=== PATIENT | female | born 1965 | race Caucasian/White ===

== ENCOUNTER 2017-11-11 13:31 | Emergency (ER) | payer OTHER ==
[~2017-11-11 13:31] MED LIST: Iopamidol 370 76% 100 ML VIAL ONE
[2017-11-11 14:09] LABS: #Basophils 0.1 thou/uL (0.0-0.2); #Eosinphils 0.1 thou/uL (0.0-0.7); #Lymphocytes 1.5 thou/uL (1.20-3.40); #Monocytes 0.5 thou/uL (0.11-0.59); #Neutrophils 6.2 thou/uL (1.40-6.50); %Basophils 0.8 % (0.0-1.0); %Eosinophils 0.6 % (0.0-10.0); %Monocytes 5.5 % (0.0-10.0); Mean Corpuscular HGB CONC 33.7 g/dL (32.0-36.0); Mean Corpuscular Hemoglobin 28.2 pg (27.0-31.0); Mean Corpuscular Volume 83.5 fL (78.0-98.0); Mean Platelet Volume 7.8 fL (7.4-10.4); Platelet Count 304 thou/uL (130-400); RBC Distribution Width 11.7 % (11.5-14.5); Red Blood Cell (RBC) Count 4.27 mill/uL (4.20-5.40); White Blood Cell (WBC) Count 8.3 thou/uL (4.8-10.8)
[2017-11-11 14:28] LABS: ALT (SGPT) 18 U/L (8-55); AST (SGOT) 19 U/L (5-34); Albumin 4.2 g/dL (3.5-5.0); Alkaline Phosphatase 129 U/L (40-150); Anion Gap 12 mmol/L (10-20); BUN (Urea Nitrogen) 12 mg/dL (9.8-20.1); Bilirubin, Total 0.6 mg/dL (0.2-1.2); Calc. Creatinine Clearance 0 mL/min (70-130); Calcium 9.7 mg/dL (7.8-10.44); Carbon Dioxide 27 mmol/L (22-29); Chloride 102 mmol/L (98-107); Estimated GFR-MDRD 81; Globulin 3.1 g/dL (2.4-3.5); Glucose 106 mg/dL (70-105); Lipase 13 U/L (8-78); Potassium 3.9 mmol/L (3.5-5.1); Protein, Total 7.3 g/dL (6.0-8.3); Sodium 137 mmol/L (136-145)
[2017-11-11] MEDS ORDERED: Ondansetron HCl/PF 4 MG/2 ML Vial ONE (15:09)
[2017-11-11 15:17] LABS: Bilirubin Negative (Negative); Blood, Urine Trace (Negative); Clarity Clear (Clear); Glucose, Urine (Dipstick) Negative (Negative); Leukocyte Negative (Negative); Nitrite Negative (Negative); Protein, Urine (Dipstick) Negative (Neg-Trace); Specific Gravity, Urine 1.015 (1.005-1.030); Urobilinogen 0.2 mg/dL (0.2-1.0); pH, Urine 8.5 (5.0-9.0)
[2017-11-11] MEDS ORDERED: Ketorolac Tromethamine 30 MG/ML VIAL ONE (15:19)
[2017-11-11 15:34] LABS: Bacteria/HPF 1+ HPF (None Seen); Crystals/HPF 2+ AMORPH PHOS HPF (Negative); RBC/HPF 0-3 HPF (0-3); WBC/HPF None Seen HPF (0-3)
--- NOTE | 2017-11-11 15:58 | CT ---
CT ABDOMEN AND PELVIS WITH CONTRAST: INDICATIONS: Injury to right lower quadrant. A foreign object hit the patient in the right lower quadrant, accord ing to the history. TECHNIQUE: Multiple axial tomograms obtained through the abdomen and pelvis with IV enhancement. FINDINGS: The lung bases are clear. The liver, spleen, pancreas, and kidneys are unremarkable. There is a tin y cystic lesion in the right kidney. The bowel loops are unremarkable. No free blood or fluid in the abdomen or pelvis. The urinary blad narciso is unremarkable. Images through the pelvis show evidence of a hysterectomy. There is some haziness seen in the subcutaneous tissues of the right lower quadrant, just under the s kin, and there is mild skin thickening. This could represent the site of the injury, and this may re present a mild soft tissue contusion. IMPRESSION: No evidence of intraabdominal injury. POS: [facility]
== END 2017-11-11 15:40 | disposition home or self-care (01) ==
LOC: SCSER 13:31
DX: S30.1XXA Contusion of abdominal wall, initial encounter (principal); Z79.899 Other long term (current) drug therapy; W22.8XXA Striking against or struck by other objects, initial encounter
CPT/HCPCS: 74177; 80053; 81003; 81015; 83690; 85025; 96374; J1885; J2405

== ENCOUNTER 2018-06-03 13:23 | Outpatient (CLI) | payer OTHER ==
--- NOTE | 2018-06-03 16:28 | RAD ---
LUMBAR SPINE 2 VIEWS: HISTORY: Low back pain, inflammatory spondylopathies. FINDINGS/IMPRESSION: The vertebral bodies heights are maintained. No fracture, subluxation, or bony destruction is identi fied. Minimal degenerative changes are noted. POS: [facility]
== END 2018-06-03 13:24 | disposition home or self-care (01) ==
LOC: BICRAD 13:23
PROVIDERS: ATTEND Internal Medicine Rheumatology
DX: M46.87 Other specified inflammatory spondylopathies, lumbosacral region (principal); M47.816 Spondylosis without myelopathy or radiculopathy, lumbar region
CPT/HCPCS: 72100

== ENCOUNTER 2018-06-06 08:57 | Outpatient (CLI) | payer OTHER ==
--- NOTE | 2018-06-06 12:12 | MRI ---
MRI LUMBAR SPINE NONCONTRAST: HISTORY: Low back pain. Inflammatory spondylopathy. FINDINGS: Conus medullaris has a normal appearance. Vertebral body height and alignment are maintained. Bone marrow signal within normal limits. No inflammatory changes are apparent. T12-L1, L1-2, L2-3, L3-4: Central canal and neural foramen are patent. L4-5: Desiccation of the disk. Very mild posterior disk bulge. Thecal sac is patent. Mild osteoph ytosis of the facets. No focal nerve root compression. L5-S1: Small right posterolateral disk herniation with superior extension to the right anterior aspe ct of the central canal posterior to the L5 vertebral body. This results in some compression of the right S1 nerve root origin. Degenerative changes with mild stenosis of the left neural foramen. IMPRESSION: 1. Small disk herniation rightward at the lumbosacral junction, most greatly affecting the right S1 nerve root origin. Clinical correlation regarding the right S1 dermatome is required. 2. Mild disk bulge at the L4-5 level. POS: [facility]
== END 2018-06-06 08:58 | disposition home or self-care (01) ==
LOC: BICMRI 08:57
PROVIDERS: ATTEND Internal Medicine Rheumatology
DX: M46.87 Other specified inflammatory spondylopathies, lumbosacral region (principal); M51.27 Other intervertebral disc displacement, lumbosacral region
CPT/HCPCS: 72148

== ENCOUNTER 2018-09-12 14:36 | Outpatient (CLI) | payer OTHER ==
[2018-09-12 16:40] LABS: #Basophils 0.1 thou/uL (0.0-0.2); #Eosinphils 0.1 thou/uL (0.0-0.7); #Lymphocytes 1.6 thou/uL (1.20-3.40); #Monocytes 0.9 thou/uL (0.11-0.59); #Neutrophils 5.6 thou/uL (1.40-6.50); %Basophils 0.8 % (0.0-1.0); %Eosinophils 1.2 % (0.0-10.0); %Lymphocytes 19.6 % (21.0-51.0); %Monocytes 10.6 % (0.0-10.0); %Neutrophils 67.8 % (42.0-75.0); Hemoglobin 11.8 g/dL (12.0-16.0); Mean Corpuscular Hemoglobin 29.5 pg (27.0-31.0); Mean Corpuscular Volume 89.5 fL (78.0-98.0); Mean Platelet Volume 7.2 fL (7.4-10.4); Platelet Count 323 thou/uL (130-400); RBC Distribution Width 12.1 % (11.5-14.5); Red Blood Cell (RBC) Count 3.99 mill/uL (4.20-5.40); White Blood Cell (WBC) Count 8.3 thou/uL (4.8-10.8)
[2018-09-12 17:26] LABS: Anion Gap 13 mmol/L (10-20); BUN (Urea Nitrogen) 17 mg/dL (9.8-20.1); Calc. Creatinine Clearance 0 mL/min (70-130); Calcium 9.6 mg/dL (7.8-10.44); Carbon Dioxide 27 mmol/L (22-29); Chloride 105 mmol/L (98-107); Estimated GFR-MDRD 81; Glucose 105 mg/dL (70-105); Potassium 3.6 mmol/L (3.5-5.1); Sodium 141 mmol/L (136-145)
== END 2018-09-12 14:37 | disposition home or self-care (01) ==
LOC: LABBT 14:36
PROVIDERS: ATTEND Surgery
DX: Z01.812 Encounter for preprocedural laboratory examination (principal); K40.90 Unilateral inguinal hernia, without obstruction or gangrene, not specified as recurrent
CPT/HCPCS: 80048; 85025

== ENCOUNTER 2018-09-20 11:16 | Day surgery (SDC) | payer OTHER ==
[2018-09-12 15:17] VITALS: BMI 27.2
[2018-09-20] MEDS ORDERED: Promethazine HCl 25 MG/ML VIAL ONE ×2 (13:43→15:31)
[2018-09-20] MEDS ORDERED: Fentanyl 100 MCG/2 ML VIAL ONE ×2 (13:43→15:31)
[2018-09-20] MEDS ORDERED: Scopolamine 1.5 mg/72 hour Patch ONE (13:43)
[2018-09-20] MEDS ORDERED: Ketorolac Tromethamine 30 MG/ML VIAL ONE (16:53)
[2018-09-20] MEDS ORDERED: Glycopyrrolate 0.2 MG/ML 5 ML SYRINGE ONE (16:53)
[2018-09-20] MEDS ORDERED: Lidocaine 1% PF 5 ML VIAL ONE (16:53)
[2018-09-20] MEDS ORDERED: Rocuronium Bromide 10 MG/ML (10ML VIAL) ONE (16:53)
[2018-09-20] MEDS ORDERED: Dexamethasone 20 MG/5 ML VIAL ONE (16:53)
[2018-09-20] MEDS ORDERED: ePHEDrine 50 MG/ML VIAL ONE (16:53)
[2018-09-20] MEDS ORDERED: PROPOFOL 200 MG/20 ML VIAL ONE (16:53)
[2018-09-20] MEDS ORDERED: Ondansetron PF 4 MG/2 ML Vial ONE (16:53)
[2018-09-20] MEDS ORDERED: PHENYLEPHRINE-NS 100 MCG/ML 10 ML SYRINGE ONE (16:53)
[2018-09-20] MEDS ORDERED: HYDROcodone/Acetaminophen 5/325 mg Tablet ONE (17:09)
--- NOTE | 2018-09-23 14:02 | OP ---
DATE OF PROCEDURE: 09/20/2018 PREOPERATIVE DIAGNOSIS: Left inguinal hernia. POSTOPERATIVE DIAGNOSIS: Left inguinal hernia. PROCEDURE PERFORMED: Da Larisa laparoscopic left inguinal hernia repair with mesh, 3DMax large. ANESTHESIA: General. ESTIMATED BLOOD LOSS: None. COMPLICATIONS: None. SPECIMEN: None. FINDINGS: Left inguinal hernia. DESCRIPTION OF PROCEDURE: The patient was taken to the operating room and laid supine on the operating room table. After general anesthetic was obtained, a Farah was placed. The abdomen was prepped and draped in a sterile fashion. Curved incision was made above the umbilicus. Cautery was dissected down to and score the fascia. Abdominal cavity was entered bluntly using a Kamala clamp. An 11 mm balloon trocar was placed and high-flow pneumoperitoneum was obtained. Left and right abdominal 8 mm trocars were placed under direct visualization. All ports were docked to the robot. The patient was placed in Trendelenburg. Surgeon gone to the console. The peritoneum was opened in the left groin. The preperitoneal space was bluntly dissected to the pubic tubercle medially to the anterior superior iliac crest laterally. The shelving edge of inguinal ligament was fully exposed. The indirect hernia sac was dissected away from the round ligament high up onto the peritoneum. There was no direct defect. There was no right inguinal hernia. 3DMax large mesh was brought into the sterile field and labelled medial aspect was placed over pubic tubercle medially. The mesh was laid out lateral to cover the femoral, the indirect and the direct areas. The mesh was sewn via 2-0 Vicryl to the pubic tubercle medially, into the posterior fascia laterally. The peritoneum was reapproximated using running 3-0 Stratafix. All port sites were infiltrated using local anesthetic. All ports were removed under camera visualization. Pneumoperitoneum was let down. PDS was used to close the fascial defect above the umbilicus. All incisions were irrigated and closed using 4-0 Monocryl and Dermabond. The patient was sent to Recovery in stable condition. All instrument counts, needle counts, and lap counts were correct. Job ID: [id number]
== END 2018-09-20 17:45 | disposition home or self-care (01) ==
LOC: SDC 11:16
PROVIDERS: ATTEND Surgery
PROC: 0YU64JZ Supplement Left Inguinal Region with Synthetic Substitute, Percutaneous Endoscopic Approach (ICD-10-PCS; principal; 2018-09-20)
DX: K40.90 Unilateral inguinal hernia, without obstruction or gangrene, not specified as recurrent (principal); M79.7 Fibromyalgia; J45.909 Unspecified asthma, uncomplicated; M19.90 Unspecified osteoarthritis, unspecified site; Z79.899 Other long term (current) drug therapy; Z88.8 Allergy status to other drugs, medicaments and biological substances; Z91.018 Allergy to other foods; Z91.09 Other allergy status, other than to drugs and biological substances
CPT/HCPCS: C1781; J0690; J1100; J1885; J2001; J2405; J2550; J2704; J3010; J3490

== ENCOUNTER 2018-11-15 09:05 | Outpatient (CLI) | payer OTHER ==
--- NOTE | 2018-11-15 09:27 | RAD ---
EXAM: 4 views of the lumbosacral spine HISTORY: Low back pain COMPARISON: None FINDINGS: 4 views of the lumbosacral spine shows normal height and alignment of the vertebral bodies and intervertebral discs without fracture or subluxation. No significant degenerative changes are seen. Alignment is unchanged with flexion and extension. The sacroiliac joints are unremarkable. There may be a calcification projecting over the left renal s hadow. IMPRESSION: 1. No significant lumbar spine abnormality. 2. Possible left nephrolithiasis
== END 2018-11-15 09:06 | disposition home or self-care (01) ==
LOC: BICRAD 09:05
PROVIDERS: ATTEND Neurological Surgery
DX: M54.5 Low back pain (principal)
CPT/HCPCS: 72110

== ENCOUNTER 2019-12-01 06:23 | Outpatient (CLI) | payer OTHER ==
[2019-12-01 11:24] LABS: #Eosinphils 0.2 thou/uL (0.0-0.7); #Lymphocytes 1.4 thou/uL (1.20-3.40); #Monocytes 0.6 thou/uL (0.11-0.59); #Neutrophils 3.2 thou/uL (1.40-6.50); %Basophils 0.6 % (0.0-1.0); %Eosinophils 3.2 % (0.0-10.0); %Lymphocytes 26.3 % (21.0-51.0); %Monocytes 10.6 % (0.0-10.0); %Neutrophils 59.3 % (42.0-75.0); Hemoglobin 12.5 g/dL (12.0-16.0); Mean Corpuscular HGB CONC 32.2 g/dL (32.0-36.0); Mean Corpuscular Hemoglobin 29.4 pg (27.0-31.0); Mean Corpuscular Volume 91.3 fL (78.0-98.0); Mean Platelet Volume 8.3 fL (7.4-10.4); Platelet Count 326 thou/uL (130-400); Red Blood Cell (RBC) Count 4.25 mill/uL (4.20-5.40); White Blood Cell (WBC) Count 5.5 thou/uL (4.8-10.8)
[2019-12-01 11:44] LABS: Anion Gap 11 mmol/L (10-20); BUN (Urea Nitrogen) 10 mg/dL (9.8-20.1); Calc. Creatinine Clearance 0 mL/min (70-130); Calcium 9.1 mg/dL (7.8-10.44); Carbon Dioxide 25 mmol/L (22-29); Chloride 107 mmol/L (98-107); Estimated GFR-MDRD Greater than 90; Glucose 98 mg/dL (70-105); Potassium 4.2 mmol/L (3.5-5.1); Sodium 139 mmol/L (136-145)
[2019-12-02 12:20] LABS: SARS-CoV-2 MS2 Positive; SARS-CoV-2 N Gene Negative; SARS-CoV-2 S Gene Negative; SARS-CoV-2 orf1ab Negative
== END 2019-12-01 06:24 | disposition home or self-care (01) ==
LOC: LABBT 06:23
PROVIDERS: ATTEND Orthopaedic Surgery
DX: Z01.818 Encounter for other preprocedural examination (principal); Z11.59 Encounter for screening for other viral diseases; S83.242A Other tear of medial meniscus, current injury, left knee, initial encounter
CPT/HCPCS: 80048; 85025; 87635; 93005; 93010; U0003

== ENCOUNTER 2019-12-05 08:58 | Day surgery (SDC) | payer OTHER ==
[2019-11-28 10:56] VITALS: BMI 30.3
[2019-12-05] MEDS ORDERED: EPINEPHrine 1 MG/ML AMP ONE (09:21)
[2019-12-05] MEDS ORDERED: Bupivacaine 0.25% HCL 30 ML VIAL ONE (09:21)
[2019-12-05] MEDS ORDERED: Bupivacaine PF 0.5% 30 ML VIAL ONE (09:21)
[2019-12-05] MEDS ORDERED: Bupivacaine/Epinephrine 0.25% 30 ML VIAL ONE (09:37)
[2019-12-05] MEDS ORDERED: Bupivacaine HCl 0.5%/Epinephrine 1:200,000/PF 30 ml Vial ONE ×2 (09:37→10:46)
[2019-12-05] MEDS ORDERED: PROPOFOL 20 ML ONE ×2 (09:48→11:48)
[2019-12-05] MEDS ORDERED: Ondansetron PF 4 MG/2 ML Vial ONE (10:46)
[2019-12-05] MEDS ORDERED: Ketorolac Tromethamine 30 MG/ML VIAL ONE (10:46)
[2019-12-05] MEDS ORDERED: Dexamethasone 20 MG/5 ML VIAL ONE (10:46)
[2019-12-05] MEDS ORDERED: PROPOFOL 200 MG/20 ML VIAL ONE (10:46)
[2019-12-05] MEDS ORDERED: Lidocaine 2% w/Epinephrine 1:200K 20 ML VIAL ONE (10:46)
[2019-12-05] MEDS ORDERED: Fentanyl 100 MCG/2 ML VIAL ONE (12:30)
--- NOTE | 2019-12-05 14:51 | OP ---
DATE OF PROCEDURE: 12/05/2019 PREOPERATIVE DIAGNOSIS: Left knee posterior horn medial meniscus tear. POSTOPERATIVE DIAGNOSIS: Left knee posterior horn medial meniscus tear. PROCEDURE PERFORMED: Left knee arthroscopy with partial medial meniscectomy. [employer]: None. ESTIMATED BLOOD LOSS: Minimal. COMPLICATIONS: None. ANESTHESIA: The patient had general anesthetic as well as a preoperative block. DISPOSITION: She went to recovery room in stable condition. INDICATIONS: This is a 54-year-old female who has been having pain, catching, swelling of the knee, that has failed nonoperative treatment. At this time, she wished to have surgery. DESCRIPTION OF PROCEDURE: After all appropriate consent forms were explained and signed, she was taken back to the operating room and at this time was given general anesthetic. Tourniquet was placed on the left thigh. Leg was placed in an arthroscopic leg palmer. The limb was then prepped and draped in standard surgical fashion. Limb was exsanguinated. Tourniquet was taken to 300 mmHg. Inferolateral portal was then established. Scope was placed into the knee joint. A needle localization technique was then used to make our medial working portal. Diagnostic arthroscopy commenced in the notch. The ACL and PCL were probed and found to be intact. The medial compartment showed the femur and tibial cartilage to be in good condition; however, there was a degenerative tear of the posterior horn and body of the medial meniscus with a large undersurface flap component and a partial meniscectomy was performed using meniscal biter and shaver back to a stable base. Lateral compartment was in good condition. Gutters were swept through and no loose bodies were noted. Patellofemoral joint showed good cartilage in the trochlea. There was a large area of grade 2 and some grade 3 chondromalacia on the patella. Unstable chondral flaps were gently debrided. At this time, scope was removed. Knee was drained. Portals were closed with simple nylon stitch. Bulky sterile dressing was then applied. Then, the tourniquet was let down. Toes pinked up nicely. The patient was then awakened. She was taken to recovery room in stable condition. All counts were correct at the end of the case. She received preoperative IV antibiotics. Job ID: [id number]
== END 2019-12-05 14:24 | disposition home or self-care (01) ==
LOC: SDC 08:58
PROVIDERS: ATTEND Orthopaedic Surgery
PROC: 0SBD4ZZ Excision of Left Knee Joint, Percutaneous Endoscopic Approach (ICD-10-PCS; principal; 2019-12-05)
DX: M23.322 Other meniscus derangements, posterior horn of medial meniscus, left knee (principal); M22.42 Chondromalacia patellae, left knee; J45.909 Unspecified asthma, uncomplicated; M19.90 Unspecified osteoarthritis, unspecified site; M79.7 Fibromyalgia; Z79.899 Other long term (current) drug therapy; Z88.8 Allergy status to other drugs, medicaments and biological substances; Z91.018 Allergy to other foods; Z91.09 Other allergy status, other than to drugs and biological substances
CPT/HCPCS: J0171; J0670; J0690; J1100; J1885; J2405; J2704; J3010; S0020

== ENCOUNTER 2021-02-02 13:13 | Outpatient (CLI) | payer OTHER | END 2021-02-02 13:14 | disposition home or self-care (01) | LOC: SCSMRI 13:13 | PROVIDERS: ATTEND Neurological Surgery | DX: M51.16 Intervertebral disc disorders with radiculopathy, lumbar region (principal); M48.061 Spinal stenosis, lumbar region without neurogenic claudication | CPT/HCPCS: 72148 ==

== ENCOUNTER 2023-10-15 04:32 | Inpatient (IN) | payer BC ==
[2023-10-15 09:59] VITALS: BMI 31.4
[2023-10-15] MEDS ORDERED: Ondansetron PF 4 MG/2 ML Vial IVP PRN (12:30)
[2023-10-15] MEDS ORDERED: Calcium Carbonate 500 MG ChewTAB PO PRN (12:30)
[2023-10-15] MEDS ORDERED: Acetaminophen 650 MG Suppository PR PRN (12:30)
[2023-10-15] MEDS ORDERED: Ondansetron ODT 4 MG TAB PO PRN (12:30)
[2023-10-15] MEDS: D5 1/2 NS w/20 mEq KCL 1,000 ML IV SCH (13:02)
[2023-10-15] MEDS: Piperacillin/Tazobactam 3.375 GM in Sodium Chloride 0.9% 100 ML IVPB SCH ×2 (13:02→17:29)
[2023-10-15] MEDS: Ketorolac Tromethamine 30 MG (1 mL) VIAL IVP SCH (13:02)
[2023-10-15] MEDS ORDERED: Lidocaine 1% PF 5 ML VIAL ONE (13:13)
[2023-10-15] MEDS ORDERED: Sodium Bicarbonate 2.5 MEQ/5 ML SDV ONE (13:14)
[2023-10-15] MEDS ORDERED: Midazolam HCl 2 mg/2 ml Vial ONE (13:14)
[2023-10-15] MEDS ORDERED: fentaNYL 50 mcg/mL 1 mL Vial ONE (13:14)
[2023-10-15 13:37] LABS: Hematocrit 33.3 % (36.0-47.0); Mean Corpuscular Hemoglobin 29.4 pg (27.0-31.0); Platelet Count 469 10x3/uL (130-400); RBC Distribution Width 14.3 % (11.5-14.5); Red Blood Cell (RBC) Count 3.74 mill/uL (4.20-5.40)
[2023-10-15 13:45] LABS: Lactic Acid 0.8 mmol/L (0.5-2.2)
[2023-10-15 13:49] LABS: ALT (SGPT) 34 U/L (8-55); AST (SGOT) 26 U/L (5-34); Albumin 2.2 g/dL (3.5-5.0); Alkaline Phosphatase 115 U/L (40-110); Anion Gap 16 mmol/L (10-20); BUN (Urea Nitrogen) 10 mg/dL (9.8-20.1); Bilirubin, Total 0.7 mg/dL (0.2-1.2); Calc. Creatinine Clearance 150 mL/min (70-130); Calcium 8.2 mg/dL (7.8-10.44); Carbon Dioxide 20 mmol/L (22-29); Chloride 105 mmol/L (98-107); Estimated GFR 109; Globulin 3.6 g/dL (2.4-3.5); Glucose 103 mg/dL (70-105); Potassium 3.6 mmol/L (3.5-5.1); Protein, Total 5.8 g/dL (6.0-8.3); Sodium 137 mmol/L (136-145)
[2023-10-15 13:53] LABS: PTT 28.4 sec (22.9-36.1)
[2023-10-15 13:54] LABS: INR-International Normal Ratio 1.2; Prothrombin Time 15.3 sec (12.0-14.7)
[2023-10-15 14:19] LABS: Band 61 % (5-11); Burr Cells SLIGHT = 2-5 cells HPF (0-1); Lymphocytes 4 % (21-51); Metamyelocyte 3 % (0-0); Monocytes 7 % (0-10); Neutrophil 25 % (42-75); Ovalocytes SLIGHT = 2-5 cells HPF (0-1); Platelet Adequacy Comment Platelets Increased; Polychromasia SLIGHT = 2-3 cells HPF (0-2); Reactive Lymphocytes 1 % (0-10); Reflex for Review?? YES
[2023-10-15] MEDS ORDERED: Albuterol 2.5 MG (3 mL) NEB NEB PRN (17:54)
[2023-10-15] MEDS: Famotidine/PF 20 mg/2ml Vial SLOW IVP SCH (20:40)
[2023-10-15] MEDS: Zonisamide 25 MG CAP PO SCH (20:40)
[2023-10-15] MEDS ORDERED: Docusate 100 MG CAP PO SCH (21:00)
[2023-10-15] MEDS ORDERED: Zonisamide 25 MG CAP PO SCH (21:00)
[2023-10-16] MEDS: Morphine 4 MG/ML VIAL SLOW IVP PRN (00:31)
[2023-10-16 05:35] LABS: #Basophils Less than 0.03 10x3/uL (0.0-0.2); %Basophils 0.1 % (0.0-1.0); %Eosinophils 1.1 % (0.0-10.0); %Lymphocytes 10.8 % (21.0-51.0); %Monocytes 7.3 % (0.0-10.0); %Neutrophils 79.9 % (42.0-75.0); Hematocrit 29.1 % (36.0-47.0); Hemoglobin 9.2 g/dL (12.0-16.0); Mean Corpuscular HGB CONC 31.6 g/dL (32.0-36.0); Mean Corpuscular Hemoglobin 28.6 pg (27.0-31.0); Mean Corpuscular Volume 90.4 fL (78.0-98.0); Mean Platelet Volume 9.2 fL (7.4-10.4); Platelet Count 427 10x3/uL (130-400); RBC Distribution Width 14.3 % (11.5-14.5); Red Blood Cell (RBC) Count 3.22 mill/uL (4.20-5.40)
[2023-10-16 06:00] LABS: ALT (SGPT) 26 U/L (8-55); AST (SGOT) 20 U/L (5-34); Albumin 2.1 g/dL (3.5-5.0); Alkaline Phosphatase 95 U/L (40-110); Anion Gap 12 mmol/L (10-20); BUN (Urea Nitrogen) 10 mg/dL (9.8-20.1); Bilirubin, Total 0.6 mg/dL (0.2-1.2); Calc. Creatinine Clearance 144 mL/min (70-130); Carbon Dioxide 21 mmol/L (22-29); Chloride 107 mmol/L (98-107); Estimated GFR 108; Globulin 3.6 g/dL (2.4-3.5); Glucose 128 mg/dL (70-105); Magnesium 2.1 mg/dL (1.6-2.6); Potassium 3.4 mmol/L (3.5-5.1); Protein, Total 5.7 g/dL (6.0-8.3); Sodium 137 mmol/L (136-145)
[2023-10-16] MEDS: DULoxetine 30 MG CAP PO SCH (09:13)
[2023-10-16] MEDS: Montelukast Sodium 10 mg Tablet PO SCH (09:13)
[2023-10-16] MEDS: Potassium Bicarbonate/Cit Ac 20 MEQ TAB PO SCH (09:13)
[2023-10-16] MEDS: Morphine 4 MG/ML VIAL SLOW IVP SCH (20:43)
[2023-10-17 05:37] LABS: Hematocrit 28.2 % (36.0-47.0); Hemoglobin 8.8 g/dL (12.0-16.0); Mean Corpuscular HGB CONC 31.2 g/dL (32.0-36.0); Mean Corpuscular Hemoglobin 28.7 pg (27.0-31.0); Mean Corpuscular Volume 91.9 fL (78.0-98.0); Mean Platelet Volume 9.1 fL (7.4-10.4); Platelet Count 452 10x3/uL (130-400); RBC Distribution Width 14.5 % (11.5-14.5); Red Blood Cell (RBC) Count 3.07 mill/uL (4.20-5.40)
[2023-10-17 05:57] LABS: Anion Gap 13 mmol/L (10-20); BUN (Urea Nitrogen) 5 mg/dL (9.8-20.1); Calc. Creatinine Clearance 142 mL/min (70-130); Calcium 7.7 mg/dL (7.8-10.44); Carbon Dioxide 18 mmol/L (22-29); Chloride 112 mmol/L (98-107); Estimated GFR 107; Glucose 111 mg/dL (70-105); Potassium 3.5 mmol/L (3.5-5.1); Sodium 139 mmol/L (136-145)
[2023-10-17] MEDS: Pantoprazole 40 MG VIAL IVP SCH (10:19)
[2023-10-17] MEDS ORDERED: Lidocaine 1% PF 5 ML VIAL ONE (11:17)
[2023-10-17] MEDS ORDERED: Sodium Bicarbonate 2.5 MEQ/5 ML SDV ONE (11:17)
[2023-10-17] MEDS: Enoxaparin 40 MG (0.4 mL) SYRINGE SC SCH (12:35)
[2023-10-17 14:10] VITALS: BMI 31.4
[2023-10-18 06:26] LABS: #Basophils Less than 0.03 10x3/uL (0.0-0.2); %Basophils 0.1 % (0.0-1.0); %Eosinophils 2.5 % (0.0-10.0); %Lymphocytes 20.6 % (21.0-51.0); %Monocytes 10.7 % (0.0-10.0); Hematocrit 28.5 % (36.0-47.0); Mean Corpuscular HGB CONC 31.6 g/dL (32.0-36.0); Mean Corpuscular Hemoglobin 28.8 pg (27.0-31.0); Mean Corpuscular Volume 91.1 fL (78.0-98.0); Mean Platelet Volume 8.8 fL (7.4-10.4); Platelet Count 508 10x3/uL (130-400); RBC Distribution Width 14.4 % (11.5-14.5); Red Blood Cell (RBC) Count 3.13 mill/uL (4.20-5.40)
[2023-10-18 06:41] LABS: Anion Gap 11 mmol/L (10-20); BUN (Urea Nitrogen) 8 mg/dL (9.8-20.1); Calc. Creatinine Clearance 132 mL/min (70-130); Calcium 8.1 mg/dL (7.8-10.44); Carbon Dioxide 21 mmol/L (22-29); Chloride 112 mmol/L (98-107); Estimated GFR 105; Glucose 96 mg/dL (70-105); Potassium 3.4 mmol/L (3.5-5.1); Sodium 141 mmol/L (136-145)
[2023-10-18] MEDS: Potassium Chloride 20 MEQ TAB PO SCH (09:56)
[2023-10-18] MEDS: LevoFLOXacin 750 MG TAB PO SCH (16:42)
[2023-10-18] MEDS: metroNIDAZOLE 500 MG TAB PO SCH (21:30)
[2023-10-19 04:18] LABS: #Basophils 0.03 10x3/uL (0.0-0.2); %Basophils 0.4 % (0.0-1.0); %Eosinophils 2.7 % (0.0-10.0); %Lymphocytes 20.1 % (21.0-51.0); %Monocytes 11.4 % (0.0-10.0); %Neutrophils 62.4 % (42.0-75.0); Hemoglobin 9.6 g/dL (12.0-16.0); Mean Corpuscular Hemoglobin 28.3 pg (27.0-31.0); Mean Corpuscular Volume 88.5 fL (78.0-98.0); Mean Platelet Volume 8.9 fL (7.4-10.4); Platelet Count 568 10x3/uL (130-400); RBC Distribution Width 14.1 % (11.5-14.5); Red Blood Cell (RBC) Count 3.39 mill/uL (4.20-5.40)
[2023-10-19 04:52] LABS: Anion Gap 13 mmol/L (10-20); BUN (Urea Nitrogen) 8 mg/dL (9.8-20.1); Calc. Creatinine Clearance 116 mL/min (70-130); Calcium 8.6 mg/dL (7.8-10.44); Carbon Dioxide 20 mmol/L (22-29); Chloride 109 mmol/L (98-107); Estimated GFR 102; Glucose 101 mg/dL (70-105); Potassium 3.7 mmol/L (3.5-5.1); Sodium 138 mmol/L (136-145)
[2023-10-19 07:36] VITALS: TEMP 98.2
[2023-10-19 11:39] VITALS: BP 121/75
[2023-10-19] MEDS ORDERED: LevoFLOXacin 750 MG TAB PO SCH (17:00)
== END 2023-10-19 15:46 | disposition home or self-care (01) | DRG 871 ==
LOC: SURG A 09:49 → OBSVTOIN 12:30
PROVIDERS: ADMIT Internal Medicine; ATTEND Hospitalist
PROC: 0W9G3ZZ Drainage of Peritoneal Cavity, Percutaneous Approach (ICD-10-PCS; 2023-10-15)
PROC: 3E03329 Introduction of Other Anti-infective into Peripheral Vein, Percutaneous Approach (ICD-10-PCS; 2023-10-15)
PROC: 02HV33Z Insertion of Infusion Device into Superior Vena Cava, Percutaneous Approach (ICD-10-PCS; principal; 2023-10-17)
DX: A41.51 Sepsis due to Escherichia coli [E. coli] (principal); K65.1 Peritoneal abscess; K56.699 Other intestinal obstruction unspecified as to partial versus complete obstruction; K21.9 Gastro-esophageal reflux disease without esophagitis; J45.909 Unspecified asthma, uncomplicated; Z88.8 Allergy status to other drugs, medicaments and biological substances; Z79.899 Other long term (current) drug therapy; Z79.82 Long term (current) use of aspirin; G43.909 Migraine, unspecified, not intractable, without status migrainosus; Z90.710 Acquired absence of both cervix and uterus; Z90.49 Acquired absence of other specified parts of digestive tract; Z98.890 Other specified postprocedural states; Z82.49 Family history of ischemic heart disease and other diseases of the circulatory system; Z83.3 Family history of diabetes mellitus; R10.30 Lower abdominal pain, unspecified
CPT/HCPCS: 36415; 36416; 36569; 49406; 74019; 74177; 76937; 77001; 80048; 80053; 81001; 83605; 83690; 83735; 84145; 85025; 85027; 85060; 85610; 85730; 87070; 87077; 87086; 87186; 87205; 96361; 96365; 96367; 96375; 96376; C1751; C9113; J0696; J1200; J1650; J1885; J2250; J2270; J2272; J2405; J2543; J3010; J3480; J3490; Q9967; S0028

== ENCOUNTER 2024-01-23 08:30 | Inpatient (IN) | payer BC ==
[2024-01-29] MEDS ORDERED: Midazolam HCl 2 mg/2 ml Vial ONE (07:34)
[2024-01-29] MEDS ORDERED: fentaNYL 50 mcg/mL 1 mL Vial ONE ×3 (07:34→12:28)
[2024-01-29] MEDS ORDERED: Bupivacaine 0.25% HCL 30 ML VIAL ONE (07:35)
[2024-01-29] MEDS ORDERED: PROPOFOL 0 ML ONE (08:11)
[2024-01-29] MEDS ORDERED: Lidocaine 1% PF 5 ML VIAL ONE (08:11)
[2024-01-29] MEDS ORDERED: Rocuronium Bromide 10 MG/ML (10ML VIAL) ONE (08:11)
[2024-01-29] MEDS ORDERED: PROPOFOL 20 ML ONE (08:15)
[2024-01-29] MEDS ORDERED: ePHEDrine Sulfate 50 MG/10 ML VIAL ONE (08:15)
[2024-01-29] MEDS ORDERED: cefOXitin 2 GM VIAL ONE (09:06)
[2024-01-29] MEDS ORDERED: Sodium Chloride 0.9% 100 ML ONE (09:07)
[2024-01-29] MEDS ORDERED: fentaNYL PF 100 MCG/2 ML SYRINGE ONE (09:25)
[2024-01-29] MEDS ORDERED: PHENYLEPHRINE-NS 100 MCG/ML 10 ML SYRINGE ONE (09:42)
[2024-01-29] MEDS ORDERED: Dexamethasone 20 MG/5 ML VIAL ONE (09:58)
[2024-01-29] MEDS ORDERED: Glycopyrrolate 0.2 MG/ML 5 ML SYRINGE ONE (10:00)
[2024-01-29] MEDS ORDERED: Bupivacaine/Epinephrine 0.25% 30 ML VIAL ONE (10:00)
[2024-01-29] MEDS ORDERED: Vasopressin 20 UNITS/ML VIAL ONE (10:02)
[2024-01-29] MEDS ORDERED: Albumin 5% 250 ML ONE (10:02)
[2024-01-29] MEDS ORDERED: Ondansetron HCl/PF 4 MG/2 ML Vial IVP PRN (10:48)
[2024-01-29] MEDS ORDERED: Promethazine HCl 25 MG/ML VIAL IM PRN ×2 (10:48→11:58)
[2024-01-29] MEDS ORDERED: Ondansetron PF 4 MG/2 ML Vial ONE (10:48)
[2024-01-29] MEDS ORDERED: Ketorolac Tromethamine 30 MG (1 mL) VIAL ONE (10:51)
[2024-01-29] MEDS ORDERED: SUGAMMADEX SODIUM 200 MG/2 ML VIAL ONE (10:56)
[2024-01-29] MEDS ORDERED: hydrALAZINE 20 MG/ML VIAL SLOW IVP PRN (11:58)
[2024-01-29] MEDS ORDERED: Ondansetron PF 4 MG/2 ML Vial IVP PRN (11:58)
[2024-01-29] MEDS ORDERED: Ipratropium/Albuterol 3 ML NEB NEB PRN (11:58)
[2024-01-29] MEDS ORDERED: Fentanyl 100 MCG/2 ML VIAL SLOW IVP PRN (11:58)
[2024-01-29] MEDS ORDERED: Acetaminophen 325 MG TAB PO SCH (12:00)
[2024-01-29] MEDS ORDERED: D5 1/2 NS w/20 mEq KCL 1,000 ML ONE (12:08)
[2024-01-29 13:54] VITALS: BMI 29.5
[2024-01-29] MEDS: Acetaminophen 500 MG TAB PO SCH (14:27)
[2024-01-29] MEDS: fentaNYL 50 mcg/mL 1 mL Vial SLOW IVP PRN (14:28)
[2024-01-29] MEDS: cefOXitin 2 GM in Sodium Chloride 0.9% 100 ML IVPB SCH (17:02)
[2024-01-29] MEDS: Montelukast Sodium 10 mg Tablet PO SCH (19:40)
[2024-01-29] MEDS: Benzocaine/Menthol 1 LOZ LOZ PO PRN (19:40)
[2024-01-29] MEDS: traMADol HCl 50 MG TAB PO PRN (19:40)
[2024-01-29] MEDS: Ketorolac Tromethamine 30 MG (1 mL) VIAL IVP PRN (19:40)
[2024-01-29] MEDS ORDERED: ZONISAMIDE 25 MG PO SCH (21:00)
[2024-01-29] MEDS: D5 1/2 NS w/20 mEq KCL 1,000 ML IV SCH (22:05)
[2024-01-30 06:02] LABS: #Basophils Less than 0.03 10x3/uL (0.0-0.2); #Eosinphils Less than 0.03 10x3/uL (0.0-0.7); %Basophils 0.1 % (0.0-1.0); %Lymphocytes 4.8 % (21.0-51.0); %Monocytes 7.2 % (0.0-10.0); %Neutrophils 87.4 % (42.0-75.0); Hematocrit 32.1 % (36.0-47.0); Hemoglobin 10.3 g/dL (12.0-16.0); Mean Corpuscular HGB CONC 32.1 g/dL (32.0-36.0); Mean Corpuscular Hemoglobin 28.8 pg (27.0-31.0); Mean Corpuscular Volume 89.7 fL (78.0-98.0); Mean Platelet Volume 9.6 fL (7.4-10.4); Platelet Count 249 10x3/uL (130-400); RBC Distribution Width 13.4 % (11.5-14.5); Red Blood Cell (RBC) Count 3.58 mill/uL (4.20-5.40)
[2024-01-30 06:20] LABS: Anion Gap 12 mmol/L (10-20); BUN (Urea Nitrogen) 6 mg/dL (9.8-20.1); Calc. Creatinine Clearance 109 mL/min (70-130); Calcium 8.3 mg/dL (7.8-10.44); Carbon Dioxide 18 mmol/L (22-29); Chloride 110 mmol/L (98-107); Estimated GFR 102; Glucose 156 mg/dL (70-105); Potassium 4.1 mmol/L (3.5-5.1); Sodium 136 mmol/L (136-145)
[2024-01-30] MEDS: DULoxetine 30 MG CAP PO SCH (08:18)
[2024-01-30] MEDS: Enoxaparin 40 MG (0.4 mL) SYRINGE SC SCH (08:18)
[2024-01-30] MEDS: Pantoprazole 40 MG VIAL IVP SCH (08:18)
[2024-01-30] MEDS: oxyCODONE 5 MG TAB PO PRN (08:26)
[2024-01-30] MEDS: D5 1/2 NS w/20 mEq KCL 1,000 ML IV SCH (15:05)
[2024-01-31 05:42] LABS: #Basophils 0.03 10x3/uL (0.0-0.2); %Basophils 0.3 % (0.0-1.0); %Eosinophils 2.1 % (0.0-10.0); %Lymphocytes 9.1 % (21.0-51.0); %Monocytes 7.2 % (0.0-10.0); %Neutrophils 80.8 % (42.0-75.0); Hematocrit 30.4 % (36.0-47.0); Hemoglobin 9.6 g/dL (12.0-16.0); Mean Corpuscular HGB CONC 31.6 g/dL (32.0-36.0); Mean Corpuscular Hemoglobin 28.8 pg (27.0-31.0); Mean Corpuscular Volume 91.3 fL (78.0-98.0); Mean Platelet Volume 9.8 fL (7.4-10.4); Platelet Count 261 10x3/uL (130-400); RBC Distribution Width 13.9 % (11.5-14.5); Red Blood Cell (RBC) Count 3.33 mill/uL (4.20-5.40)
[2024-01-31 05:55] LABS: Anion Gap 9 mmol/L (10-20); BUN (Urea Nitrogen) 6 mg/dL (9.8-20.1); Calc. Creatinine Clearance 111 mL/min (70-130); Calcium 8.5 mg/dL (7.8-10.44); Carbon Dioxide 20 mmol/L (22-29); Chloride 111 mmol/L (98-107); Estimated GFR 103; Glucose 116 mg/dL (70-105); Potassium 3.8 mmol/L (3.5-5.1); Sodium 136 mmol/L (136-145)
[2024-01-31] MEDS: Pantoprazole DR 40 MG TAB PO SCH (08:15)
[2024-01-31 08:47] VITALS: BP 123/77
[2024-01-31 12:07] VITALS: TEMP 98.3
== END 2024-01-31 13:01 | disposition home or self-care (01) | DRG 331 ==
LOC: SURG A 01-29 06:19
PROVIDERS: ADMIT Surgery; ATTEND Surgery
PROC: 0DBN0ZZ Excision of Sigmoid Colon, Open Approach (ICD-10-PCS; principal; 2024-01-29)
PROC: 3E0M05Z Introduction of Adhesion Barrier into Peritoneal Cavity, Open Approach (ICD-10-PCS; 2024-01-29)
PROC: 3E033XZ Introduction of Vasopressor into Peripheral Vein, Percutaneous Approach (ICD-10-PCS; 2024-01-29)
DX: K57.32 Diverticulitis of large intestine without perforation or abscess without bleeding (principal); K21.9 Gastro-esophageal reflux disease without esophagitis; K66.0 Peritoneal adhesions (postprocedural) (postinfection); Z90.49 Acquired absence of other specified parts of digestive tract; Z98.890 Other specified postprocedural states; Z90.710 Acquired absence of both cervix and uterus
CPT/HCPCS: 36415; 36416; 80048; 85025; 88307; A4314; A4333; C1713; C1776; J0665; J0694; J1100; J1650; J1885; J2250; J2405; J2470; J2704; J3010; J3480; P9045